=== PATIENT | male | born 1990 | race African-American/Black ===

== ENCOUNTER 2016-06-21 06:18 | Emergency (ER) | payer MEDICAID ==
[~2016-06-21] VITALS: Ht 170.2 cm; Wt 54.0 kg
[2016-06-21 06:20] VITALS: BP 138/88
== END 2016-06-21 06:37 | disposition left against medical advice (07) ==
LOC: ER 06:18
DX: Z53.21 Procedure and treatment not carried out due to patient leaving prior to being seen by health care provider (principal)

== ENCOUNTER 2016-08-01 14:22 | Emergency (ER) | payer MEDICAID ==
[~2016-08-01] VITALS: Ht 170.2 cm; Wt 71.0 kg
[2016-08-01 15:15] LABS: BASOPHILS % 0.4 % (0.0-2.0); EOSINOPHILS % 0.2 % (0.0-5.0); HEMATOCRIT. 44.1 % (42.0-52.0); HEMOGLOBIN. 15.2 g/dL (14.0-18.0); MEAN CORPUSCULAR HEMOGLOBIN 29.8 pg (28.0-32.0); MEAN CORPUSCULAR VOLUME 86.4 fL (80.0-94.0); MEAN PLATELET VOLUME 8.2 fl (7.4-10.4); NEUTROPHILS % 57.4 % (40.0-76.0); PLATELET 274 x1000/uL (130-400); RED BLOOD CELL COUNT 5.11 mill/uL (4.7-6.1); RED CELL DISTRIBUTION WIDTH 12.3 % (11.6-14.6)
[2016-08-01 15:27] LABS: CARBON DIOXIDE 25 mEq/L (21-32); CHLORIDE 105 mEq/L (98-107)
[2016-08-01 15:32] LABS: ETHANOL BLOOD 304 mg/dL
[2016-08-01 15:35] LABS: CLARITY URINE CLEAR (CLEAR); COLOR URINE YELLOW (YELLOW); GLUCOSE URINE NEGATIVE (NEGATIVE); KETONES URINE NEGATIVE (NEGATIVE); LEUKOCYTE ESTERASE URINE NEGATIVE (NEGATIVE); NITRITE URINE NEGATIVE (NEGATIVE); OCCULT BLOOD URINE NEGATIVE (NEGATIVE); PH URINE 5.5 (4.5-8.0); PROTEIN URINE NEGATIVE (NEGATIVE); SPECIFIC GRAVITY URINE 1.007 (1.005-1.030); UROBILINOGEN URINE 0.2 E.U./dL (0.2-1.0)
[2016-08-01 15:46] LABS: *AMPHETAMINES SCREEN URINE PRESUMTIVE POSITIVE (NEGATIVE); *BARBITURATES SCREEN URINE NEGATIVE (NEGATIVE); *BENZODIAZEPINES SCREEN URINE NEGATIVE (NEGATIVE); *COCAINE SCREEN URINE NEGATIVE (NEGATIVE); CANNABINOID URINE SCREEN PRESUMTIVE POSITIVE (NEGATIVE); METHADONE URINE SCREEN NEGATIVE (NEGATIVE); OPIATES URINE SCREEN NEGATIVE (NEGATIVE); PHENCYCLIDINE URINE SCREEN NEGATIVE (NEGATIVE)
[2016-08-01] MEDS ORDERED: LORAZEPAM 2MG/ML CPJ IV ONE ×2 (16:15→21:45)
[2016-08-02 10:19] VITALS: BP 137/77
== END 2016-08-02 13:30 | disposition home or self-care (01) ==
LOC: ER 15:10
DX: R45.851 Suicidal ideations (principal); R41.82 Altered mental status, unspecified; F12.129 Cannabis abuse with intoxication, unspecified; F10.239 Alcohol dependence with withdrawal, unspecified; E83.51 Hypocalcemia; E87.6 Hypokalemia; E86.0 Dehydration; R74.0 Nonspecific elevation of levels of transaminase and lactic acid dehydrogenase [LDH]; D72.829 Elevated white blood cell count, unspecified; F12.10 Cannabis abuse, uncomplicated; F15.10 Other stimulant abuse, uncomplicated; Z98.890 Other specified postprocedural states
CPT/HCPCS: 36415; 71010; 80053; 80305; 81003; 85025; 93005; 96374; 96376; 99285; G0482; J2060; Z7610

== ENCOUNTER 2017-02-04 08:33 | Emergency (ER) | payer MEDICAID ==
[~2017-02-04] VITALS: Ht 175.3 cm; Wt 60.0 kg
[2017-02-04 09:10] LABS: BASOPHILS % 0.6 % (0.0-2.0); EOSINOPHILS % 2.7 % (0.0-5.0); HEMATOCRIT. 42.9 % (42.0-52.0); HEMOGLOBIN. 14.7 g/dL (14.0-18.0); MEAN CORPUSCULAR HEMOGLOBIN 30.1 pg (28.0-32.0); MEAN CORPUSCULAR VOLUME 87.8 fL (80.0-94.0); MEAN PLATELET VOLUME 9.7 fl (7.4-10.4); MONOCYTES % 9.6 % (2.0-8.0); NEUTROPHILS % 57.1 % (40.0-76.0); PLATELET 215 x1000/uL (130-400); RED BLOOD CELL COUNT 4.89 mill/uL (4.7-6.1); RED CELL DISTRIBUTION WIDTH 12.9 % (11.6-14.6)
[2017-02-04 09:22] LABS: CLARITY URINE CLOUDY (CLEAR); COLOR URINE DARK YELLOW (YELLOW); KETONES URINE NEGATIVE (NEGATIVE); LEUKOCYTE ESTERASE URINE NEGATIVE (NEGATIVE); NITRITE URINE NEGATIVE (NEGATIVE); OCCULT BLOOD URINE 2+ (NEGATIVE); PROTEIN URINE 2+ (NEGATIVE); SPECIFIC GRAVITY URINE 1.037 (1.005-1.030)
[2017-02-04 09:22] LABS: CHLORIDE 103 mEq/L (98-107)
[2017-02-04 09:36] LABS: CARBON DIOXIDE 28 mEq/L (21-32); ETHANOL BLOOD < 10 mg/dL
[2017-02-04 09:39] LABS: *AMPHETAMINES SCREEN URINE NEGATIVE (NEGATIVE); *BARBITURATES SCREEN URINE NEGATIVE (NEGATIVE); *BENZODIAZEPINES SCREEN URINE NEGATIVE (NEGATIVE); *COCAINE SCREEN URINE NEGATIVE (NEGATIVE); CANNABINOID URINE SCREEN PRESUMTIVE POSITIVE (NEGATIVE); METHADONE URINE SCREEN NEGATIVE (NEGATIVE); OPIATES URINE SCREEN NEGATIVE (NEGATIVE); PHENCYCLIDINE URINE SCREEN NEGATIVE (NEGATIVE)
[2017-02-04 12:00] VITALS: BP 109/74
== END 2017-02-04 12:48 | disposition home or self-care (01) ==
LOC: ER 08:45
DX: F91.8 Other conduct disorders (principal); R41.82 Altered mental status, unspecified; F12.10 Cannabis abuse, uncomplicated; F14.10 Cocaine abuse, uncomplicated; F16.10 Hallucinogen abuse, uncomplicated; Z93.3 Colostomy status
CPT/HCPCS: 36415; 80053; 80305; 80307; 80329; 81001; 85025; 99284; G0482; Z7610

== ENCOUNTER 2017-06-06 17:35 | Emergency (ER) | payer MEDICAID ==
[~2017-06-06] VITALS: Ht 170.2 cm; Wt 63.0 kg
[2017-06-06] MEDS ORDERED: ONDANSETRON HCL 4MG/2ML VIAL IV STA (23:08)
[2017-06-06] MEDS ORDERED: MORPHINE SULFATE 4 MG/ML CPJ (NOT FOR IM USE) IV STA (23:08)
[2017-06-06] MEDS ORDERED: SODIUM CHLORIDE 0.9% 1,000 ML IV ONE (23:10)
[2017-06-06] MEDS ORDERED: CEFAZOLIN 1000MG PREMIX 50 ML IV ONE (23:15)
[2017-06-06 23:32] LABS: CHLORIDE 103 mEq/L (98-107)
[2017-06-06 23:35] LABS: BASOPHILS % 0.6 % (0.0-2.0); EOSINOPHILS % 1.8 % (0.0-5.0); HEMATOCRIT. 39.7 % (42.0-52.0); HEMOGLOBIN. 13.8 g/dL (14.0-18.0); LYMPHOCYTES % 28.7 % (20.0-50.0); MEAN CORPUSCULAR HEMOGLOBIN 30.1 pg (28.0-32.0); MEAN CORPUSCULAR VOLUME 86.7 fL (80.0-94.0); MEAN PLATELET VOLUME 8.5 fl (7.4-10.4); MONOCYTES % 7.5 % (2.0-8.0); NEUTROPHILS % 61.4 % (40.0-76.0); PLATELET 327 x1000/uL (130-400); RED BLOOD CELL COUNT 4.59 mill/uL (4.7-6.1); RED CELL DISTRIBUTION WIDTH 12.1 % (11.6-14.6)
[2017-06-06 23:36] LABS: ETHANOL BLOOD < 10 mg/dL; PARTIAL THROMBOPLASTIN TIME 28.4 sec (23.4-31.0); PROTHROMBIN TIME 10.7 sec (9.4-11.6)
[2017-06-06] MEDS ORDERED: TETANUS, DIPHTHERIA, PERTUSSIS VAC/PF 0.5ML (>7YR OLD) IM ONE (23:45)
[2017-06-07 00:06] LABS: CLARITY URINE CLEAR (CLEAR); COLOR URINE YELLOW (YELLOW); KETONES URINE NEGATIVE (NEGATIVE); LEUKOCYTE ESTERASE URINE NEGATIVE (NEGATIVE); NITRITE URINE NEGATIVE (NEGATIVE); OCCULT BLOOD URINE NEGATIVE (NEGATIVE); PROTEIN URINE NEGATIVE (NEGATIVE); SPECIFIC GRAVITY URINE 1.024 (1.005-1.030)
[2017-06-07 00:50] LABS: *AMPHETAMINES SCREEN URINE PRESUMTIVE POSITIVE (NEGATIVE); CANNABINOID URINE SCREEN PRESUMTIVE POSITIVE (NEGATIVE); PHENCYCLIDINE URINE SCREEN NEGATIVE (NEGATIVE)
[2017-06-07 00:51] LABS: *BARBITURATES SCREEN URINE NEGATIVE (NEGATIVE); *BENZODIAZEPINES SCREEN URINE NEGATIVE (NEGATIVE); *COCAINE SCREEN URINE NEGATIVE (NEGATIVE); METHADONE URINE SCREEN NEGATIVE (NEGATIVE); OPIATES URINE SCREEN NEGATIVE (NEGATIVE)
[2017-06-07] MEDS ORDERED: SODIUM CHLORIDE 0.9% 1,000 ML IV ONE (01:08)
[2017-06-07 03:33] VITALS: BP 164/108
== END 2017-06-07 03:30 | disposition short-term general hospital (02) ==
LOC: ER 18:06
DX: S51.811A Laceration without foreign body of right forearm, initial encounter (principal); S54.91XA Injury of unspecified nerve at forearm level, right arm, initial encounter; F14.10 Cocaine abuse, uncomplicated; F12.90 Cannabis use, unspecified, uncomplicated; F99 Mental disorder, not otherwise specified; Z20.2 Contact with and (suspected) exposure to infections with a predominantly sexual mode of transmission; Z93.3 Colostomy status; W22.09XA Striking against other stationary object, initial encounter; Y93.89 Activity, other specified; Y92.89 Other specified places as the place of occurrence of the external cause
CPT/HCPCS: 36415; 73090; 80053; 80305; 81003; 82962; 85025; 85610; 85730; 86850; 86900; 86901; 90471; 90715; 96361; 96365; 96375; 99285; G0482; J0690; J2270; J2405; J7030; Z7610

== ENCOUNTER 2017-06-22 06:06 | Emergency (ER) | payer MEDICAID ==
[~2017-06-22] VITALS: Ht 162.6 cm; Wt 50.0 kg
[2017-06-22 07:12] LABS: BASOPHILS % 0.2 % (0.0-2.0); EOSINOPHILS % 0.2 % (0.0-5.0); HEMATOCRIT. 36.9 % (42.0-52.0); HEMOGLOBIN. 12.5 g/dL (14.0-18.0); LYMPHOCYTES % 9.3 % (20.0-50.0); MEAN CORPUSCULAR VOLUME 88.3 fL (80.0-94.0); MEAN PLATELET VOLUME 7.8 fl (7.4-10.4); MONOCYTES % 4.5 % (2.0-8.0); NEUTROPHILS % 85.8 % (40.0-76.0); PLATELET 419 x1000/uL (130-400); RED BLOOD CELL COUNT 4.18 mill/uL (4.7-6.1); RED CELL DISTRIBUTION WIDTH 13.3 % (11.6-14.6)
[2017-06-22 07:24] LABS: CHLORIDE 106 mEq/L (98-107)
[2017-06-22 07:30] LABS: ETHANOL BLOOD 17 mg/dL
[2017-06-22] MEDS ORDERED: OLANZAPINE 10 MG/VIAL IM ONE (07:30)
[2017-06-22 08:27] LABS: CLARITY URINE CLEAR (CLEAR); COLOR URINE YELLOW (YELLOW); KETONES URINE NEGATIVE (NEGATIVE); LEUKOCYTE ESTERASE URINE NEGATIVE (NEGATIVE); NITRITE URINE NEGATIVE (NEGATIVE); OCCULT BLOOD URINE NEGATIVE (NEGATIVE); PROTEIN URINE NEGATIVE (NEGATIVE); SPECIFIC GRAVITY URINE 1.025 (1.005-1.030)
[2017-06-22 08:52] LABS: *AMPHETAMINES SCREEN URINE PRESUMTIVE POSITIVE (NEGATIVE); *BARBITURATES SCREEN URINE NEGATIVE (NEGATIVE); *BENZODIAZEPINES SCREEN URINE NEGATIVE (NEGATIVE)
[2017-06-22 08:53] LABS: *COCAINE SCREEN URINE NEGATIVE (NEGATIVE); CANNABINOID URINE SCREEN PRESUMTIVE POSITIVE (NEGATIVE); METHADONE URINE SCREEN NEGATIVE (NEGATIVE); OPIATES URINE SCREEN NEGATIVE (NEGATIVE); PHENCYCLIDINE URINE SCREEN NEGATIVE (NEGATIVE)
[2017-06-22] MEDS ORDERED: LORAZEPAM 2MG/ML CPJ IM STA (08:55)
[2017-06-22] MEDS ORDERED: LORAZEPAM 2MG/ML CPJ IV ONE (19:00)
[2017-06-23 08:15] VITALS: BP 120/80
== END 2017-06-23 08:20 | disposition home or self-care (01) ==
LOC: ER 06:06
DX: F12.10 Cannabis abuse, uncomplicated (principal); I10 Essential (primary) hypertension; R45.850 Homicidal ideations
CPT/HCPCS: 36415; 80053; 80305; 81003; 85025; 96372; 96374; 99284; G0482; J2060; J3490; Z7610; A4315

== ENCOUNTER 2021-03-18 10:26 | Emergency (ER) | payer OTHER, MEDICAID ==
[~2021-03-18] VITALS: Ht 165.1 cm; Wt 61.0 kg
[2021-03-18 11:00] VITALS: BP 137/93
== END 2021-03-18 11:17 | disposition home or self-care (01) ==
LOC: ER 10:26
CPT/HCPCS: 99283

== ENCOUNTER 2022-09-07 22:12 | Emergency (ER) | payer MEDICAID, OTHER ==
[~2022-09-07] VITALS: Ht 170.2 cm; Wt 72.0 kg
[2022-09-07 22:20] VITALS: BP 140/70; PULSE 76; RESP 16; TEMP 97.8; O2SAT 98
[2022-09-08] MEDS ORDERED: ONDANSETRON HCL 4MG/2ML INJ IV ONE (00:30)
[2022-09-08] MEDS ORDERED: KETAMINE HCL 50 MG/ML 10ML IV ONE (00:30)
[2022-09-08] MEDS ORDERED: LIDOCAINE HCL/PF 1% 10 MG/ML 5ML VIAL INFIL ONE (01:30)
[2022-09-08] MEDS ORDERED: BACITRACIN ZINC OINT UDPKT TOP ONE (02:45)
[2022-09-08] MEDS ORDERED: CEPH500T MT (02:46)
[2022-09-08] MEDS ORDERED: NAPR375T5 MT (02:46)
== END 2022-09-08 03:32 | disposition home or self-care (01) ==
LOC: ER 22:12
DX: F12.10 Cannabis abuse, uncomplicated (principal); I10 Essential (primary) hypertension
CPT/HCPCS: 99284; J3490 ×2

== ENCOUNTER 2024-01-04 16:52 | Emergency (ER) | payer MEDICAID ==
[~2024-01-04] VITALS: Ht 167.6 cm; Wt 64.0 kg
[~2024-01-04 16:52] MED LIST: CEPH500T MT; NAPR375T5 MT
[2024-01-04 16:55] VITALS: TEMP 98.2; O2SAT 98
[2024-01-04] MEDS: LIDOCAINE HCL 1% 20ML VIAL INFIL ONE (20:30)
[2024-01-04] MEDS ORDERED: IBUP-2028 MT (21:03)
[2024-01-04] MEDS ORDERED: CLIN-194 MT (21:03)
[2024-01-04 22:48] VITALS: BP 143/90; PULSE 80; RESP 19
[2024-01-04] MEDS: HYDROCODONE/ACETAMINOPHEN 5/325MG TABLET PO NR (22:48)
[2024-01-04] MEDS: CLINDAMYCIN HCL 150MG CAPSULE PO NR (22:49)
== END 2024-01-04 22:53 | disposition left against medical advice (07) ==
LOC: ER 16:52
DX: S60.449A External constriction of unspecified finger, initial encounter (principal); I10 Essential (primary) hypertension; W49.04XA Ring or other jewelry causing external constriction, initial encounter; Y93.89 Activity, other specified; Y92.89 Other specified places as the place of occurrence of the external cause; Y99.8 Other external cause status
CPT/HCPCS: 99283; J3490; Z7610

== ENCOUNTER 2025-01-30 02:22 | Emergency (ER) | payer MEDICAID ==
[~2025-01-30] VITALS: Ht 170.2 cm; Wt 59.0 kg
[~2025-01-30 02:22] MED LIST changes: +CLIN-194 MT; +IBUP-2028 MT; +NAPR-1494 MT; -NAPR375T5 MT
[2025-01-30 02:29] VITALS: O2SAT 99
[2025-01-30] MEDS: BACITRACIN ZINC OINT UDPKT TOP NR (02:58)
[2025-01-30 03:00] VITALS: BP 142/70; PULSE 100; RESP 18; TEMP 36.7; O2SAT 99
[2025-01-30] MEDS ORDERED: BACITRACIN 14GM TUBE TOP ONE (03:00)
== END 2025-01-30 03:02 | disposition home or self-care (01) ==
LOC: ER 02:22
DX: S90.414A Abrasion, right lesser toe(s), initial encounter (principal); I10 Essential (primary) hypertension; Z59.00 Homelessness unspecified; Z79.1 Long term (current) use of non-steroidal anti-inflammatories (NSAID); Z93.3 Colostomy status; X58.XXXA Exposure to other specified factors, initial encounter; Y93.89 Activity, other specified; Y92.89 Other specified places as the place of occurrence of the external cause; Y99.8 Other external cause status
CPT/HCPCS: 99282

== ENCOUNTER 2025-02-08 14:10 | Emergency (ER) | payer MEDICAID ==
[~2025-02-08] VITALS: Ht 170.2 cm; Wt 70.0 kg
[2025-02-08 14:49] VITALS: O2SAT 98
[2025-02-08 16:11] VITALS: BP 131/82; PULSE 96; RESP 18; TEMP 36.7; O2SAT 98
== END 2025-02-08 16:44 | disposition home or self-care (01) ==
LOC: ER 14:10
DX: Z93.3 Colostomy status (principal); Z76.0 Encounter for issue of repeat prescription; I10 Essential (primary) hypertension
CPT/HCPCS: 99282